=== PATIENT | male | born 1950 | race Caucasian/White ===

== ENCOUNTER → 2024-01-26 08:46 | Outpatient (REF) | payer OTHER, SELFPAY | LOC: MRI 3T 08:46 | PROVIDERS: ATTENDING PHYSICIAN Otolaryngology; FAMILY PHYSICIAN Family Medicine | DX: H90.A22 Sensorineural hearing loss, unilateral, left ear, with restricted hearing on the contralateral side (principal) | CPT/HCPCS: 70553; A9575 ==

== ENCOUNTER 2025-03-14 18:47 | Emergency (ER) | payer OTHER, SELFPAY ==
[2025-03-14 19:00] VITALS: BP 173/91
[2025-03-14] MEDS: TYLENOL 650 MG PO (20:49)
[2025-03-14 20:51] VITALS: BMI 28.1
[2025-03-14 22:12] VITALS: BP 117/71
--- NOTE | 2025-03-14 22:17 | ED.GENMED ---
History of Present Illness
General
Chief Complaint: Head Injury
Source: patient
Exam Limitations: none
Time Seen by Provider: 03/14/25 20:10
Nursing documentation reviewed up to this point in time: agreed with
History of Present Illness
History of Present Illness:
Patient is a 74-year-old male who presents to the emergency department for evaluation alongside family for evaluation of head injury. Patient states that he was getting out of the car to drop his grandson off earlier today when he slipped on black
ice falling backward striking his head on the ground. He denies any LOC. He was able to get up on his own and has been ambulatory since fall. Patient states that he went home and took a nap and upon waking had a headache prompting visit to the
emergency department. Patient also reports pain in his buttocks from in back.
Patient denies any other symptoms including neck pain, nausea/vomiting, dizziness, ataxia, visual changes. He denies any back pain. Patient denies any pain in his upper or lower extremities. Patient's family state he has been acting at his
baseline.
Patient is not on any oral anticoagulation
Review of Systems
Review of Systems
Allergies reviewed?: Yes
All Other Systems: ROS reviewed and negative except as documented in HPI and ROS
Phy Exam
Physical Exam
Physical Exam:
Vitals: Hypertensive, otherwise vital signs are stable
General: Patient is well appearing, no acute distress. Nontoxic appearing
Skin: Warm and dry, no rashes or lesions
Head: Normocephalic, minor contusion to left parietal scalp
Eyes: Sclera nonicteric. Pupils equal round reactive to light bilaterally. EOMs intact. No nystagmus.
Throat: Protecting airway
Neck: Normal ROM, no cervical spine tenderness, no meningismus
Cardiac: Regular rate and rhythm, no murmurs.
Pulm: Normal respiratory effort. Lungs clear bilaterally
Abdomen: No abdominal tenderness.
Back: Mild tenderness in sacral region without other midline spinal tenderness.
Extremities: No evidence of cyanosis or edema. Strength 5/5 in bilateral upper and lower extremities
Neuro: AAOx3. CN II-XII grossly intact. No focal neurologic deficits.
Psychiatric: Normal affect.
Course
Orders/Labs/Results
Orders:
Orders
03/14/25 19:03
CT Head W/o Iv Contrast Urgent
Comment:
Reason For Exam: Fall, head injury
03/14/25 20:27
Cervical Spine wo Contrast CT [CT Cervical Spine W/o Iv Contr] Urgent
Comment:
Reason For Exam: fall
Acetaminophen [Tylenol] 650 mg PO NOW STA
Coccyx/Sacrum, 2 View CR [CR Sacrum/coccyx Min 2 View] Urgent
Comment:
Reason For Exam: lower back pain s/p fall
Vital Signs
Initial and Last Documented VS:
Initial Vital Signs
Temp Pulse Resp BP Pulse Ox
98.0 F 95 19 173/91 97
03/14/25 19:00 03/14/25 19:00 03/14/25 19:00 03/14/25 19:00 03/14/25 19:00
Last Documented Vital Signs
Temp Pulse Resp BP Pulse Ox
97.4 F 68 18 115/88 98
03/14/25 22:12 03/14/25 23:19 03/14/25 23:19 03/14/25 23:19 03/14/25 23:19
MDM/Problems Addressed
Differential Diagnosis Includes:
Not limited to: Contusion, concussion, intracranial bleed, cervical spine fracture, sacral fracture, coccygeal fracture, etc.
MDM/Problems Addressed:
74-year-old male with head injury after slip and fall on black ice this morning. No LOC. Minor headache, denies any vomiting, dizziness, ataxia, visual changes, neck pain. Also with my tenderness in lower back/buttock region. No anticoagulation.
Vitals and physical exam as above. Patient very well appearing, in no distress. There is a very minor contusion to the left parietal scalp. He�s alert and oriented without focal neurologic changes. No reproducible tenderness in lower back/buttocks.
CT imaging of head / c-spine shows no evidence of acute traumatic intracranial or cervical spine injury. Sacral/coccygeal x-ray without evidence of obvious fracture on my evaluation however official read is pending.
On reassessment � patient states he feels well, headache improved following tylenol.
No neurologic symptoms.
Ultimately � feel stable for discharge home with supportive care and return precautions. 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
Patient comfortable with plan.
Chronic conditions affecting care:
N/A
Acute Exacerbation and/or Progression of Chronic Illness:
N/A
*Radiology
Radiology exam reviewed: radiology read reviewed
*Pulse Oximetry
SaO2: 96
Oxygen Mode of Delivery: Room air
Patient hypoxic: no
*EKG
Interpreted by ED Provider?: NA
*Keno Attendant Interpretation
Rate: Keno Attendant- N/A
*Critical Care Note
Total Time (30-74mins, 75-104mins- exclusive of procedures): Not Applicable
Update Note
Update Note:
Update: Sacrum xray shows lucency suspicious for nondisplaced sacral fracture. Called and left message for patient to discuss results.
ED Attending Note
-
Portions of this chart may have been created with voice recognition software.� Occasional wrong word or��sound alike� substitutions may have occurred due to the inherent limitations of voice recognition software.
Discharge Plan
Departure
Patient Disposition: Home (Routine Discharge)
Date of Disposition: 03/14/25
Time of Disposition: 22:58
Patient with high blood pressure during this ER visit?: Yes
Condition: Good
Discharge Problem:
Fall, Head injury, Pain, coccyx
Instructions: Head Injury in Adults (DC), Coccyx Injury ED, BLOOD PRESSURE
Referrals:
UNKNOWN - PT DOES,NOT KNOW [Unknown Provider]
Activity Restrictions/Additional Instructions:
RETURN TO THE EMERGENCY DEPARTMENT WITH ANY SEVERE HEADACHE OR NECK PAIN, CHANGES IN MENTAL STATUS, INTRACTABLE VOMITING, DIZZINESS OR LOSS OF BALANCE, INTRACTABLE PAIN IN LOWER BACK/BOTTOM, WORSENING IN CURRENT SYMPTOMS, OR ANY OTHER CONCERNS
- As discussed�the CT imaging of your head and cervical spine showed no acute traumatic injuries. You may have sustained a mild concussion.
- We will contact you if the x-ray of your sacrum/coccyx reveals a fracture. It may be a bruised coccyx. Please treat symptoms with Tylenol and/or Motrin and sit on a soft doughnut pillow.
- Follow-up with your primary care provider for further evaluation/management and to ensure that your symptoms are improving
Monitor your symptoms closely and return to the emergency department with any acute worsening/new symptoms or any other concerns
Interventions
Interventions:
*General Assessment Last Done: 03/14/25 19:02
*Neglect/Abuse Screening Last Done: 03/14/25 19:02
*ED COVID-19 Vaccine History Last Done: 03/14/25 19:02
*ED Influenza Vaccine History Last Done: 03/14/25 19:02
[facility] Risk Assessment Tool Last Done: 03/14/25 22:12
*Risk Screen - Suicide (C-SSRS) Last Done: 03/14/25 19:02
*Nursing Disposition Last Done: 03/14/25 23:19
ED- Neurological Assessment Last Done: 03/14/25 20:53
ED-Skin Assessment Last Done: 03/14/25 20:53
Discharge Date and Time
Discharge Date/Time: 03/14/25 23:20
Print Language: [place]
[2025-03-14 23:19] VITALS: BP 115/88
== END 2025-03-14 23:20 | disposition home or self-care (01) ==
LOC: EMR 18:47
PROVIDERS: EMERGENCY PHYSICIAN Emergency Medicine; FAMILY PHYSICIAN Family Medicine
DX: S09.90XA Unspecified injury of head, initial encounter (principal); M53.3 Sacrococcygeal disorders, not elsewhere classified; W00.0XXA Fall on same level due to ice and snow, initial encounter
CPT/HCPCS: 99284; 70450; 72125; 72220